=== PATIENT | female | born 1955 | race Caucasian/White ===

== ENCOUNTER → 2017-06-26 | Outpatient (CLI) | payer OTHER ==
[~2017-06-26] MED LIST: ADVAIR 500/501 DISK IH; BENICAR20 MG PO; BENTYL20 MG PO; CEFTIN500 MG PO; Ecotrin PO; MELOXICAM7.5 MG PO; PRILOSEC20 MG PO; SINEQUAN25 MG PO; VENTOLIN HFA18 GM IH; VITAMIN B-12500 MC2 PO; VITAMIN B12-FO1 EACH PO; VITAMIN D35000 UNI1 PO; Vitamin B-12 PO
== END | disposition home or self-care (01) ==
DX: M16.11 Unilateral primary osteoarthritis, right hip (principal); R26.2 Difficulty in walking, not elsewhere classified; M25.551 Pain in right hip; M25.651 Stiffness of right hip, not elsewhere classified; Z74.1 Need for assistance with personal care; M62.81 Muscle weakness (generalized)
CPT/HCPCS: 97161 GP; 97165 GO; 97530 GP; 97535 GO

== ENCOUNTER 2017-07-22 21:46 | Inpatient (IN) | payer OTHER ==
[~2017-07-22] VITALS: Ht 162.6 cm; Wt 119.4 kg
[~2017-07-22 21:46] MED LIST changes: +SINEQUAN10 MG PO; -SINEQUAN25 MG PO; +TOPROL XL50 MG PO; +TYLENOL ARTHRI650 MG PO; +WELLBUTRIN XL300 MG PO
[2017-07-23 06:33] VITALS: BP 127/82
[2017-07-23 10:49] LABS: HEMOGLOBIN 11.7 G/DL (11.9-15.5); MCH 28.7 PG (29.0-34.0); MCHC 31.6 G/DL (30.0-36.0); MCV 90.7 FL (83-99); PLATELET COUNT 191 K/uL (156-360); RBC DIS.WIDTH-CV 12.5 % (11.8-14.6); RBC DIS.WIDTH-SD 41.6 % (39-53); RED BLOOD COUNT 4.08 M/uL (3.80-5.20); WHITE BLOOD COUNT 10.9 K/uL (4.1-10.2)
[2017-07-23 11:00] VITALS: BP 129/60
[2017-07-23 16:21] VITALS: BP 130/72
[2017-07-23 20:14] VITALS: BP 117/78
[2017-07-24 00:10] VITALS: BP 107/59
[2017-07-24 04:15] VITALS: BP 104/68
[2017-07-24 06:14] LABS: HEMATOCRIT 33.2 % (36.0-46.0); HEMOGLOBIN 10.8 G/DL (11.9-15.5); MCV 89.2 FL (83-99)
[2017-07-24 06:41] LABS: CHLORIDE 104 MEQ/L (99-109); GFR ESTIMATE (CALCULATED) > 59 mL/min/; GLUCOSE 146 mg/dL (70-99); SODIUM 137 MEQ/L (136-147); UREA NITROGEN (BUN) 19 mg/dL (9-23)
[2017-07-24 08:00] VITALS: BP 105/58
[2017-07-24 12:32] VITALS: BP 102/72
[2017-07-24 16:03] VITALS: BP 101/63
[2017-07-24 19:59] VITALS: BP 114/58
[2017-07-25] VITALS: BP 141/75
[2017-07-25 04:10] VITALS: BP 127/63
[2017-07-25 08:00] VITALS: BP 105/68
[2017-07-25] MEDS ORDERED: ELIQUIS2.5 MG PO (09:00)
[2017-07-25] MEDS ORDERED: ENDOCET 5-3251 EACH PO (09:00)
[2017-07-25 11:30] VITALS: BP 93/52
[2017-07-25 12:39] VITALS: BP 119/53
== END 2017-07-25 14:35 | disposition home health service (06) | DRG 470 ==
LOC: ENRESERV 21:46 → 2SOUTH 07-23 05:35 → 3WEST 07-23 10:40 → 2SOUTH 07-23 13:56 → 3WEST 07-25 14:35
PROVIDERS: Orthopaedic Surgery
PROC: 0SR90JA Replacement of Right Hip Joint with Synthetic Substitute, Uncemented, Open Approach (ICD-10-PCS; principal; 2017-07-23)
DX: M16.11 Unilateral primary osteoarthritis, right hip (principal); J45.909 Unspecified asthma, uncomplicated; E66.01 Morbid (severe) obesity due to excess calories; Z68.42 Body mass index [BMI] 45.0-49.9, adult; I10 Essential (primary) hypertension; K21.9 Gastro-esophageal reflux disease without esophagitis; Z88.1 Allergy status to other antibiotic agents; Z87.891 Personal history of nicotine dependence
CPT/HCPCS: 73501; 73522; 80048; 85014; 85018; 85027; 94640; 94640 76; 99202; C1713; J0690; J1170; J2250; J2405; J7050; S0020